=== PATIENT | female | born 1995 | race Caucasian/White ===

== ENCOUNTER 2018-08-31 09:01 | Emergency (ER) | payer OTHER ==
[2018-08-31 09:30] VITALS: BP 119/64
--- NOTE | 2018-08-31 09:42 | UC ---
Throat Pain/Nasal Kev HPI - HPI Summary HPI Summary: nasal congestion x 4 days started with sore throat 4 days ago , but it is gone now mild cough , no fever, no chills - History of Current Complaint Chief Complaint: UCGeneralIllness Stated Complaint: ST Time Seen by Provider: 08/31/18 09:28 Hx Obtained From: Patient Hx Last Menstrual Period: depo Onset/Duration: Gradual Onset, Lasting Days - 4, Still Present Severity: Severe Pain Intensity: 4 Cough: Nonproductive Associated Signs & Symptoms: Positive: Nasal Discharge. Negative: Dysphagia, FB Sensation, Wheezing, Hoarseness, Sinus Discomfort, Fever, Vomiting, Rash - Allergies/Home Medications Allergies/Adverse Reactions: Allergies Allergy/AdvReac Type Severity Reaction Status Date / Time No Known Allergies Allergy Verified 03/11/16 15:15 Home Medications: Home Medications Lisdexamfetamine Dimesylate [Vyvanse] 50 mg PO 08/31/18 [History] Sertraline HCl [Zoloft] 150 mg PO 08/31/18 [History] cloNIDine HCl [Clonidine HCl ER 0.1 MG] 0.1 mg PO BEDTIME 08/31/18 [History Confirmed 08/31/18] traZODone TAB* [Desyrel TAB*] 100 mg PO BEDTIME 08/31/18 [History Confirmed ] PMH/Surg Hx/FS Hx/Imm Hx Previously Healthy: Yes - Surgical History Surgical History: None - Family History Known Family History: Positive: Other - No FMH tinnitus Negative: Diabetes Family History: sister positive Hx OM - Social History Alcohol Use: None Substance Use Type: Marijuana Smoking Status (MU): Light Every Day Tobacco Smoker Type: Cigarettes Amount Used/How Often: 2-3 per day Review of Systems All Other Systems Reviewed And Are Negative: Yes Constitutional: Positive: Negative Skin: Positive: Negative Eyes: Positive: Negative ENT: Positive: Sore Throat, Nasal Discharge, Sinus Congestion. Negative: Ear Ache Respiratory: Positive: Cough Cardiovascular: Positive: Negative Is Patient Immunocompromised?: No Physical Exam Triage Information Reviewed: Yes Appearance: Well-Appearing, No Pain Distress, Well-Nourished Vital Signs: Initial Vital Signs Temp 97.8 F 08/31/18 09:24 Pulse 101 08/31/18 09:24 Resp 20 08/31/18 09:24 BP 119/64 08/31/18 09:24 Pulse Ox 98 08/31/18 09:24 Vital Signs Reviewed: Yes Eye Exam: Normal Eyes: Positive: Conjunctiva Clear ENT: Positive: Normal ENT inspection, Hearing grossly normal, Pharyngeal erythema, Nasal congestion, TMs normal Neck: Positive: Supple, Nontender, No Lymphadenopathy Respiratory: Positive: Chest non-tender, Lungs clear, Normal breath sounds Cardiovascular: Positive: RRR, No Murmur, Pulses Normal Skin Exam: Normal Throat Pain/Nasal Course/Dx - Differential Dx/Diagnosis Provider Diagnosis: URI, acute Discharge - Sign-Out/Discharge Documenting (check all that apply): Patient Departure All imaging exams completed and their final reports reviewed: No Studies - Discharge Plan Condition: Stable Disposition: HOME Patient Education Materials: Upper Respiratory Infection (DC) Referrals: Lela Alba MD [Primary Care Provider] - If Needed - Billing Disposition and Condition Condition: STABLE Disposition: Home
== END 2018-08-31 10:10 | disposition home or self-care (01) ==
LOC: UCCORT 09:01
DX: J06.9 Acute upper respiratory infection, unspecified (principal); F17.210 Nicotine dependence, cigarettes, uncomplicated
CPT/HCPCS: 87651; 99211; G0463

== ENCOUNTER → 2018-10-09 19:46 | Emergency (ER) | payer OTHER | END | disposition left against medical advice (07) | LOC: UCCORT 19:46 | DX: Z53.21 Procedure and treatment not carried out due to patient leaving prior to being seen by health care provider (principal) ==

== ENCOUNTER 2019-01-03 17:46 | Emergency (ER) | payer OTHER ==
[2019-01-03 18:07] VITALS: BP 131/75
--- NOTE | 2019-01-03 18:50 | UC ---
Complaint Female HPI - HPI Summary HPI Summary: Pt presents with c/o sudden onset of labia and vaginal discomfort. Pt describes the discomfort as "itchy, burning and painful with heterosexual intercourse.". Pt states that she began to notice vaginal itching and labia swelling and burning 3 days ago. Pt states that she had vaginal intercourse last night and it was painful and burned. - History Of Current Complaint Chief Complaint: UCGU Stated Complaint: PERSONAL Time Seen by Provider: 01/03/19 18:36 Hx Obtained From: Patient Hx Last Menstrual Period: has mirena ?: No Onset/Duration: Sudden Onset, Lasting Days, Still Present Timing: Constant Severity Initially: Mild Severity Currently: Moderate Pain Intensity: 5 Character: Dull, Burning Aggravating Factor(s): [place] Alleviating Factor(s): Nothing Associated Signs And Symptoms: Positive: Genital Swelling - Risk Factors Ectopic Risk Factor: IUD Use Ovarian Torsion Risk Factor: Reproductive Age - Allergies/Home Medications Allergies/Adverse Reactions: Allergies Allergy/AdvReac Type Severity Reaction Status Date / Time No Known Allergies Allergy Verified 01/03/19 18:07 Home Medications: Home Medications Docusate Sodium [Colace] 100 mg PO BID 01/03/19 [History Confirmed 01/03/19] PMH/Surg Hx/FS Hx/Imm Hx Previously Healthy: Yes - Surgical History Surgical History: None - Family History Known Family History: Positive: Other - No FMH tinnitus Negative: Diabetes Family History: sister positive Hx OM - Social History Occupation: Employed Full-time Lives: With Family Alcohol Use: Occasionally Substance Use Type: Marijuana Substance Use Comment - Amount & Last Used: occasional Smoking Status (MU): Current Some Day Smoker Type: Cigarettes Amount Used/How Often: 2-3 per day Have You Smoked in the Last Year: Yes - Immunization History Vaccination Up to Date: Yes Review of Systems All Other Systems Reviewed And Are Negative: Yes Constitutional: Positive: Negative Skin: Positive: Other - labia erythema and swelling Eyes: Positive: Negative ENT: Positive: Negative Respiratory: Positive: Negative Cardiovascular: Positive: Negative Gastrointestinal: Positive: Negative Genitourinary: Positive: Vaginal/Penile Burning, Vaginal/Penile Itching, Vaginal /Penile Tenderness - with intercourse Motor: Positive: Negative Neurovascular: Positive: Negative Musculoskeletal: Positive: Negative Neurological: Positive: Negative Psychological: Positive: Negative Is Patient Immunocompromised?: No Physical Exam Triage Information Reviewed: Yes Appearance: Well-Appearing Vital Signs: Initial Vital Signs Temp 98.2 F 01/03/19 18:02 Pulse 91 01/03/19 18:02 Resp 16 01/03/19 18:02 BP 131/75 01/03/19 18:02 Pulse Ox 100 01/03/19 18:02 Vital Signs Reviewed: Yes Eye Exam: Normal ENT Exam: Normal ENT: Positive: Hearing grossly normal Dental Exam: Normal Neck exam: Normal Respiratory: Positive: No respiratory distress Abdominal Exam: Normal Abdomen Description: Positive: Nontender Pelvic Exam: Positive: Discharge - white, thick cottage chesese like, Other - outer labia, mild erythema and swelling, some thick white discharge in vaginal canal, cervix was not friable nor strawberry cervix. Musculoskeletal Exam: Normal Neurological Exam: Normal Psychological Exam: Normal Skin Exam: Normal Complaint Female Dx - Course Course Of Treatment: I discussed with the pt the STI tests and affirm test. Pt verbalized understanding and agreed to plan of care. - Differential Dx/Diagnosis Differential Diagnosis/HQI/PQRI: Cervicitis, Sexually Transmitted Disease, Urinary Tract Infection Provider Diagnosis: Vaginitis Discharge - Sign-Out/Discharge Documenting (check all that apply): Patient Departure All imaging exams completed and their final reports reviewed: No Studies - Discharge Plan Condition: Stable Disposition: HOME Prescriptions: Fluconazole 150 MG TAB* [Diflucan 150 MG TAB*] 150 mg PO UC ONCE #2 tablet Patient Education Materials: Vaginitis (ED) Referrals: Lela Alba MD [Primary Care Provider] - If Needed Additional Instructions: Pleae follow up with your PCP as needed. Please refrain from sexual intercourse until all text results have been confirmed. - Billing Disposition and Condition Condition: STABLE Disposition: Home
[2019-01-05 13:13] LABS: Neisseria gonorrhoeae (GC) RNA Negative (Negative)
== END 2019-01-03 19:02 | disposition home or self-care (01) ==
LOC: UCCORT 17:46
DX: N76.0 Acute vaginitis (principal); F17.210 Nicotine dependence, cigarettes, uncomplicated
CPT/HCPCS: 81003; 84702; 87077; 87086; 87186; 87480; 87491; 87510; 87591; 87660; 99212; G0463

== ENCOUNTER 2019-03-26 12:27 | Emergency (ER) | payer OTHER ==
[2019-03-26 12:57] VITALS: BP 124/69
--- NOTE | 2019-03-26 13:11 | UC ---
UC General HPI - HPI Summary HPI Summary: pt is c/o pain from a hemorrhoid. it hurts more with BM's and when urine gets on it. pt admitted to the pain being sudden in onset with anal sex for the 1st time. she has no bleeding or discharge. - History of Current Complaint Chief Complaint: UCGeneralIllness Stated Complaint: PERSONAL Time Seen by Provider: 03/26/19 12:58 Hx Obtained From: Patient Hx Last Menstrual Period: unknown Pain Intensity: 5 Associated Signs & Symptoms: Negative: Abdominal Pain, Fever - Allergy/Home Medications Allergies/Adverse Reactions: Allergies Allergy/AdvReac Type Severity Reaction Status Date / Time No Known Allergies Allergy Verified 03/26/19 12:51 PMH/Surg Hx/FS Hx/Imm Hx - Additional Past Medical History Additional PMH: constipation. Psychological History: Anxiety, Depression - Surgical History Surgical History: None - Family History Known Family History: Positive: Other - No FMH tinnitus Negative: Diabetes Family History: sister positive Hx OM - Social History Alcohol Use: Occasionally Substance Use Type: Marijuana Substance Use Comment - Amount & Last Used: occasional Smoking Status (MU): Former Smoker Type: Cigarettes Amount Used/How Often: 2-3 per day Have You Smoked in the Last Year: Yes When Did the Patient Quit Smoking/Using Tobacco: 2 months ago - Immunization History Vaccination Up to Date: Yes Review of Systems All Other Systems Reviewed And Are Negative: No Constitutional: Negative: Fever, Chills Gastrointestinal: Positive: Other - hx constipation, takes stool softners. Negative: Abdominal Pain, Diarrhea Genitourinary: Negative: Dysuria Physical Exam Triage Information Reviewed: Yes Appearance: Well-Appearing Vital Signs: Initial Vital Signs Temp 97.7 F 03/26/19 12:53 Pulse 83 03/26/19 12:53 Resp 16 03/26/19 12:53 BP 124/69 03/26/19 12:53 Pulse Ox 100 03/26/19 12:53 Vital Signs Reviewed: Yes Eyes: Positive: Conjunctiva Clear ENT: Positive: Normal ENT inspection Neck: Positive: Supple Respiratory: Positive: Lungs clear Cardiovascular: Positive: RRR Abdomen Description: Positive: Nontender, No Organomegaly, Soft, Other: - Rectal area: Small non inflammed/ not swollen external hemorrhoid. No rectal drainage. Traction on skin reveals a small fissure at 12 o'clock just superior to the hemorrhoid that is very tender but has no erythema or drainage.. Negative: CVA Tenderness (R), CVA Tenderness (L) Bowel Sounds: Positive: Present Musculoskeletal: Positive: ROM Intact Neurological: Positive: Alert Psychological: Positive: Age Appropriate Behavior Skin Exam: Normal Skin: Negative: Rashes Course/Dx - Differential Dx - Multi-Symptom Differential Diagnoses: Other - no concern for thrombosed hemorrhoid. pt has a fissure whic she will tx with her stool softner daily, sitz baths and a topical lidocaine plus close f/u. pt encourage to avoid anal sex. - Diagnoses Provider Diagnosis: Anal fissure Discharge ED - Sign-Out/Discharge Documenting (check all that apply): Patient Departure All imaging exams completed and their final reports reviewed: No Studies - Discharge Plan Condition: Stable Disposition: HOME Prescriptions: Lidocaine 4% GEL* [Topicaine 4% GEL*] 1 applic TOPICAL SEE INSTRUCTIONS #1 tube Naproxen [Naprosyn 500 mg tab] 500 mg PO BID 5 Days #10 tablet Patient Education Materials: Anal Fissure (ED), Sitz Bath (DC) Referrals: Lela Alba MD [Primary Care Provider] - 4 Days - Billing Disposition and Condition Condition: STABLE Disposition: Home
== END 2019-03-26 13:26 | disposition home or self-care (01) ==
LOC: UCCORT 12:27
DX: K60.2 Anal fissure, unspecified (principal); Z87.891 Personal history of nicotine dependence
CPT/HCPCS: 99212; G0463

== ENCOUNTER 2019-09-16 11:46 | Emergency (ER) | payer OTHER ==
--- OUTSIDE RECORDS SUMMARY | 2019-09-16 12:12 | XMS REPORT | Continuity of Care Document ---
:1995 External Reference #:[id number] Author Name Gucci Lentz M.D. 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 Onset: 06/15/2018 Social History Type Date Description Comments Sex Unknown ETOH Use Denies alcohol use Recreational Drug Use Denies Drug Use Tobacco Use Start: Unknown Patient denies history of smoking Smoking Status Reviewed: 06/15/19 Patient denies history of smoking Allergies, Adverse Reactions, Alerts Description No Known Drug Allergies Medications Active Medications SIG Qnty Indications Ordering Provider Date Nitro-bid place 1/2 [facility] 2% Ointment anus when waking up Gucci Alfonso, and 1/2 6 hours M.DJeffrey later; x 5 weeks. if dizziness occurs call the office Clonidine HCL 1 Tablet every Unknown night Tablets Sertraline HCL 1 by mouth every Unknown 50mg day Tablets Trazodone HCL 1 by mouth every Unknown 100mg night at bedtime Tablets Vyvanse 1 by mouth every Unknown 30mg Capsules morning Polyethylene Glycol take one package Unknown 3350 (17 gm) with 10 oz 3350NF Packet of water every day for constipation Sertraline HCL 1 by mouth every Unknown 100mg day Tablets Montserrat Mullins Hydrochloride ER (XL) 150mg Tablets ER 24HR Aripiprazole 1 tablet by mouth 1 Unknown 10mg day Tablets Dispers Immunizations Description No Information Available Vital Signs Date Vital Result Comment 07/23/2019 9:45am BP Systolic Sitting Right Arm 127 mmHg BP Diastolic Sitting Right Arm 71 mmHg Body Temperature 98.0 F Heart Rate 81 /min Height 63 inches 5'3" Weight 214.00 lb BMI (Body Mass Index) 37.9 kg/m2 BSA (Body Surface Area) 1.99 m2 [place] body weight in kilograms 52 kg O2 % BldC Oximetry 98 % ra 06/15/2019 9:39am BP Systolic 126 mmHg BP Diastolic 80 mmHg Heart Rate 87 /min Height 63 inches 5'3" Weight 203.00 lb Pain Level 2 BMI (Body Mass Index) 36.0 kg/m2 BSA (Body Surface Area) 1.95 m2 [place] body weight in kilograms 52 kg O2 % BldC Oximetry 97 % Results Test Acquired Date Facility Test Result H/L Range Note LDL Cholesterol 02/21/2019 [facility] Cholesterol 151 mg/dL <200 1, 2 Profile [address] [place], [place] [id number] [phone] Triglycerides 116 mg/dL <150 3 HDL Cholesterol 40 mg/dL >40 4 LDL-Cholesterol 88 mg/dL < 100 5 Laboratory 02/21/2019 [facility] Hepatitis C < 0.1 0.0-0.9 6 test finding 134 [facility] Antibody s/[place] [address] [phone] HIV Screen 4TH 02/21/2019 [facility] HIV Screen 4th Non Reactive Non Reactive 7 [address] Reflex [address] [place] [address] wRfx [phone] UNSPECIFIED DEPRESSIVE D/O 2 Reference Guidelines*: Desirable: ........... < 200 mg/dL Borderline High: ..... 200-239 mg/dL High: ................ >= 240 mg/dL * The National Cholesterol Education Program (NCEP) 3 Reference Guidelines*: Normal: ............. < 150 mg/dL Borderline High: .... 150-199 mg/dL High: ............... 200-499 mg/dL Very High: .......... > 500 mg/dL * Source: National Cholesterol Education Program (NCEP) 4 Reference Guidelines*: Low HDL: ..... < 40 mg/dL Normal: ..... 40-60 mg/dL Desirable: ... > 60 mg/dL *The National Cholesterol Education Program(NCEP) 5 Reference Guidelines*: Optimal:........... <100 mg/dL Near Optimal....... 100-129 mg/dL Borderline High.... 130-159 mg/dL High............... 160-189 mg/dL Very High.......... >=190 mg/dL * Source: National Cholesterol Education Program (NCEP) 6 INFCE Result Units: s/co ratio Negative: < 0.8 Indeterminate: 0.8 - 0.9 Positive: > 0.9 The CDC recommends that a positive HCV antibody result be followed up with a HCV Nucleic Acid Amplification test (804892). 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 Kat Callahan PA 06/01/2019 Z72.51 High risk heterosexual behavior Streets, JOSÉ ANTONIO Stephens 02/23/2019 F43.24 Adjustment disorder with Mace, Roxana E., NPP, [employer] disturbance of conduct 02/23/2019 F60.9 Personality disorder, unspecified Mace, Roxana E., NPP, [employer] 02/23/2019 F63.89 Other impulse disorders Mace, Roxana E., NPP, [employer] 02/23/2019 Z91.5 Personal history of self-harm Mace, Roxana E., NPP, [employer] 02/22/2019 F43.24 Adjustment disorder with Mace, Roxana E., NPP, [employer] disturbance of conduct 02/22/2019 F60.9 Personality disorder, unspecified Mace, Roxana E., NPP, [employer] 02/22/2019 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
--- OUTSIDE RECORDS SUMMARY | 2019-09-16 12:12 | XMS REPORT | Continuity of Care Document ---
:1995 External Reference #:[id number] Author Name Gucci Lentz M.D. 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 Gynecology Problems Active Problems Provider Date Other [...] Date Nitro-bid place 1/2 cream on 30gm [place], 06/04/2019 2% Ointment anus when waking up [...] by mouth every Unknown 100mg day Tablets Bupropion Montserrat Schulz Hydrochloride ER (XL) 150mg Tablets ER 24HR [...] kg/m2 BSA (Body Surface Area) 1.99 m2 [place] body weight in kilograms 52 kg O2 % BldC Oximetry 98 % ra 06/15/2019 9:39am BP Systolic 126 mmHg BP Diastolic 80 mmHg Heart Rate 87 /min Height 63 inches 5'3" Weight 203.00 lb Pain Level 2 BMI (Body Mass Index) 36.0 kg/m2 BSA (Body Surface Area) 1.95 m2 [place] body weight in kilograms 52 kg O2 % BldC Oximetry 97 % Results Test Acquired Date Facility Test Result H/L Range Note LDL Cholesterol 02/21/2019 [facility] Cholesterol 151 mg/dL <200 1, 2 Profile [address] [place], [place] [id number] [phone] Triglycerides 116 mg/dL <150 3 HDL Cholesterol 40 mg/dL >40 4 LDL-Cholesterol 88 mg/dL < 100 5 Laboratory 02/21/2019 [facility] Hepatitis C < 0.1 0.0-0.9 6 test finding 134 [facility] Antibody s/[place] [address] [phone] HIV Screen 4TH 02/21/2019 [facility] HIV Screen 4th Non Reactive Non Reactive [address] [place] [place] [address] wRfx [phone] UNSPECIFIED DEPRESSIVE D/O 2 Reference Guidelines*: [...] with a HCV Nucleic Acid Amplification test (208345). Performed at: [facility] [address] [id number] Network Engineering Advisor: Geno Lewis MD, Phone: [phone] Performed at: [facility] [address] [id number] Network Engineering Advisor: Geno Lewis MD, Phone: [phone] Procedures Description No Information Available Medical Devices Description No Information Available Encounters Type Date Location Provider Dx Diagnosis Office Visit 07/23/2019 Surgical Office Jessie Lentz60.1 Chronic anal 10:00a Gucci Alfonso M.D. 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 [place] 06/01/2019 Z72.51 High risk heterosexual behavior [place] 02/23/2019 F43.24 Adjustment disorder with Mace, Roxana E., NPP, CLINIC LEAD disturbance of conduct 02/23/2019 F60.9 Personality disorder, unspecified Mace, Roxana E., NPP, CLINIC LEAD 02/23/2019 F63.89 Other impulse disorders Mace, Roxana E., NPP, CLINIC LEAD 02/23/2019 Z91.5 Personal history of self-harm Mace, Roxana E., NPP, CLINIC LEAD 02/22/2019 F43.24 Adjustment disorder with Mace, Roxana E., NPP, CLINIC LEAD disturbance of conduct 02/22/2019 F60.9 Personality disorder, unspecified Mace, Roxana E., NPP, CLINIC LEAD 02/22/2019 F63.89 Other impulse disorders Mace, Roxana E., NPP, CLINIC LEAD 02/22/2019 Z91.5 Personal history of self-harm Mace, Roxana E., NPP, CLINIC LEAD 02/21/2019 K59.00 Constipation, unspecified Gonzalo Gamino M.D. 02/21/2019 F43.24 Adjustment disorder with Mace, Roxana E., NPP, CLINIC LEAD disturbance of conduct 02/21/2019 F60.9 Personality disorder, unspecified Mace, Roxana E., NPP, CLINIC LEAD 02/21/2019 F63.89 Other impulse disorders Mace, Roxana E., NPP, CLINIC LEAD 02/21/2019 Z91.5 Personal history of self-harm Mace, Roxana E., NPP, CLINIC LEAD Plan of Treatment No Information Available Functional Status Description No Information Available Mental Status Description No Information Available Referrals Description No Information Available
[2019-09-16 12:55] VITALS: BP 123/83
--- NOTE | 2019-09-16 13:30 | UC ---
Throat Pain/Nasal Kev HPI - HPI Summary HPI Summary: 24-year-old female who complains of vaginal pain with intercourse. She denies any abnormal vaginal discharge. A history of chlamydia in the past. She denies any urinary symptoms. She is sexually active with more than 1 person. She uses Depo-Provera for control but states she uses condoms "sometimes". - History of Current Complaint Chief Complaint: UCRespiratory Stated Complaint: PERSONAL/CONGESTION HEADACHE Time Seen by Provider: 09/16/19 13:26 Hx Obtained From: Patient Hx Last Menstrual Period: unknown ?: No Onset/Duration: Sudden Onset, Lasting Days - Patient has had the symptoms for 2 days. Severity: Mild Pain Intensity: 6 Cough: None Associated Signs & Symptoms: Positive: Negative - Allergies/Home Medications Allergies/Adverse Reactions: Allergies Allergy/AdvReac Type Severity Reaction Status Date / Time No Known Allergies Allergy Verified 09/16/19 12:49 Home Medications: Home Medications buPROPion SR TAB* [Wellbutrin SR TAB*] 150 mg PO DAILY 03/11/16 [History Confirmed 09/16/19] Lisdexamfetamine Dimesylate [Vyvanse] 50 mg PO DAILY 08/31/18 [History Confirmed 09/16/19] Sertraline HCl [Zoloft] 200 mg PO DAILY 08/31/18 [History Confirmed 09/16/19] cloNIDine HCl [Clonidine HCl ER 0.1 MG] 0.1 mg PO BEDTIME 08/31/18 [History Confirmed 09/16/19] traZODone TAB* [Desyrel TAB*] 100 mg PO BEDTIME 08/31/18 [History Confirmed 02/27] Docusate Sodium [Colace] 100 mg PO BID 01/03/19 [History Confirmed 09/16/19] Naproxen [Naprosyn 500 mg tab] 500 mg PO BID PRN 09/16/19 [History Confirmed 02/27] medroxyPROGESTERone ACETATE* [DEPO-Provera] 150 mg IM ONCE 09/16/19 [History Confirmed 09/16/19] PMH/Surg Hx/FS Hx/Imm Hx Previously Healthy: Yes Psychological History: Depression - Surgical History Surgical History: None - Family History Known Family History: Positive: Other - No FMH tinnitus Negative: Diabetes Family History: sister positive Hx OM - Social History Alcohol Use: Occasionally Substance Use Type: Marijuana Substance Use Comment - Amount & Last Used: occasional Smoking Status (MU): Former Smoker Type: Cigarettes Amount Used/How Often: 2-3 per day Have You Smoked in the Last Year: Yes When Did the Patient Quit Smoking/Using Tobacco: 2 years ago - Immunization History Vaccination Up to Date: Yes Review of Systems All Other Systems Reviewed And Are Negative: Yes ENT: Positive: Nasal Discharge, Sinus Congestion Respiratory: Positive: Cough - Patient states she's also had cough and cold symptoms for the past 2 or 3 days. Genitourinary: Positive: Vaginal/Penile Burning Is Patient Immunocompromised?: No Physical Exam Triage Information Reviewed: Yes Appearance: Well-Appearing, No Pain Distress, Well-Nourished Vital Signs: Initial Vital Signs Temp 98.3 F 09/16/19 12:50 Pulse 87 09/16/19 12:50 Resp 14 09/16/19 12:50 BP 123/83 09/16/19 12:50 Pulse Ox 100 09/16/19 12:50 Vital Signs Reviewed: Yes Eyes: Positive: Conjunctiva Clear ENT: Positive: Nasal drainage - Clear nasal coryza, TMs normal, Uvula midline Neck: Positive: Supple, Nontender, No Lymphadenopathy Respiratory: Positive: Lungs clear, Normal breath sounds, No respiratory distress, No accessory muscle use Cardiovascular: Positive: RRR, No Murmur, Pulses Normal, Brisk Capillary Refill Abdomen Description: Positive: Nontender, No Organomegaly, Soft. Negative: CVA Tenderness (R), CVA Tenderness (L), Distended, Guarding, Hepatomegaly, Splenomegaly Bowel Sounds: Positive: Present Pelvic Exam: Positive: External Exam Normal, Bimanual Exam Normal, No Cerv. Motion Tender, Other - The patient has a small reddened irritated area at the lower end of the clitoris and at the vaginal opening.. Negative: Discharge Musculoskeletal Exam: Normal Neurological Exam: Normal Psychological Exam: Normal Skin Exam: Normal Throat Pain/Nasal Course/Dx - Course Course Of Treatment: Urinalysis was negative Urine hCG negative Urine was sent for chlamydia and gonorrhea testing. AFFIRM swab is sent. The patient is comfortable here however after further discussion with her she did admit that she used the handle of a hairbrush vaginally 2 days ago and it was immediately after using that that she developed the burning sensation to her vaginal area. She is excessively tender where the reddened area is at the opening of the vagina and the base of the clitoris although I do not see any lacerations. The patient was advised to not use foreign objects in her vagina unless they are specifically made for that area. She's follow-up with her OB/ CHARGE ACCOUNT CLERK provider if she has any worsening symptoms. We will call her if any of the cultures come back positive. - Differential Dx/Diagnosis Provider Diagnosis: Vaginal irritation Discharge ED - Sign-Out/Discharge Documenting (check all that apply): Patient Departure All imaging exams completed and their final reports reviewed: No Studies - Discharge Plan Condition: Good Disposition: HOME Referrals: Lela Alba MD [Primary Care Provider] - Additional Instructions: Follow-up with your primary care provider or OFFICE SUPPORT provider as needed, if no improvement or if worsening symptoms. We will call you if any of the culture results come back positive. - Billing Disposition and Condition Condition: GOOD Disposition: Home
--- NOTE | 2019-09-17 19:27 | UC ---
- Progress Note Progress Note: Vaginal DNA from September 16, 2019 comes back positive for Dominique. Is negative for Gardnerella negative for Trichomonas. Gonorrhea and chlamydia are still pending. Nursing to call patient inform the patient of the results and I have called in for a prescription of Diflucan to be used one dose now and then repeat again in 2-3 days if symptoms have not completely resolved. Course/Dx - Diagnoses Provider Diagnoses: Vaginal irritation Discharge ED - Sign-Out/Discharge Documenting (check all that apply): Patient Departure All imaging exams completed and their final reports reviewed: No Studies - Discharge Plan Condition: Good Disposition: HOME Prescriptions: Fluconazole 150 MG TAB* [Diflucan 150 MG TAB*] 150 mg PO ONCE #2 tablet Referrals: Lela Alba MD [Primary Care Provider] - Additional Instructions: Follow-up with your primary care provider or VOLUNTEER SERVICES MANAGER provider as needed, if no improvement or if worsening symptoms. We will call you if any of the culture results come back positive. - Billing Disposition and Condition Condition: GOOD Disposition: Home
[2019-09-18 13:13] LABS: Chlamydia trachomatis NAA Negative (Negative); Neisseria gonorrhoeae (GC) NAA Negative (Negative)
--- NOTE | 2019-09-19 07:09 | UC ---
- Progress Note Progress Note: Please advise that GC and Chlamydia screens are negative. Course/Dx - Diagnoses Provider Diagnoses: Vaginal irritation Discharge ED - Sign-Out/Discharge Documenting (check all that apply): Post-Discharge Follow Up All imaging exams completed and their final reports reviewed: No Studies - Discharge Plan Condition: Good Disposition: HOME Prescriptions: Fluconazole 150 MG TAB* [Diflucan 150 MG TAB*] 150 mg PO ONCE #2 tablet Referrals: Lela Alba MD [Primary Care Provider] - Additional Instructions: Follow-up with your primary care provider or [employer] ARCHITECT provider as needed, if no improvement or if worsening symptoms. We will call you if any of the culture results come back positive. - Billing Disposition and Condition Condition: GOOD Disposition: Home
== END 2019-09-16 14:25 | disposition home or self-care (01) ==
LOC: UCCORT 11:46
DX: N89.8 Other specified noninflammatory disorders of vagina (principal); F32.9 Major depressive disorder, single episode, unspecified; Z79.899 Other long term (current) drug therapy; Z87.891 Personal history of nicotine dependence
CPT/HCPCS: 81003; 84702; 87480; 87491; 87510; 87591; 87660; 99212; G0463